=== PATIENT | female | born 1995 ===

== ENCOUNTER → 2018-12-20 | Outpatient (CLI) | payer BC ==
[~2018-12-20] MED LIST: ALB6.7R INH; PREN-127 PO
[2018-12-20 10:59] LABS: PLATELET COUNT, AUTOMATED 370 K/uL (150-450)
== END ==
LOC: LAB 09:57
PROVIDERS: ATTEND Obstetrics & Gynecology
DX: Z34.91 Encounter for supervision of normal pregnancy, unspecified, first trimester (principal); B96.89 Other specified bacterial agents as the cause of diseases classified elsewhere
CPT/HCPCS: 36415; 81001; 85025; 86592; 86703; 86762; 86850; 86900; 86901; 87088; 87340

== ENCOUNTER 2018-12-21 17:41 | Emergency (ER) | payer BC ==
--- NOTE | 2018-12-21 18:08 | ER Report ---
History and Physical Time Seen By MD: 18:07 Hx. of Stated Complaint: PATIENT IS 7 WEEKS AND HAVING BLEEDING AND CRAMPING TODAY. FIRST HPI/ROS CHIEF COMPLAINT: Vaginal bleeding and cramping HISTORY OF PRESENT ILLNESS:Patient is , she is currently 7 weeks 0 days by last menstrual period; initial lab screen shows blood type is O+ antibody negative, per the electronic medial record; patient states that she had her initial OB appointment yesterday at weeks 6 days based on a first aid last menstrual period of 11/02/2018. This was an unplanned but father is involved. Patient states she had some cramping yesterday but had a routine exam. Today she began having some spotting bleeding and increased cramping that began around 3 PM. She's had 2 episodes where she had to go the bathroom and noticed blood when she wiped she states less than a regular period. She denies any dysuria. She denies any vaginal discharge. She denies any other symptoms at this time. REVIEW OF SYSTEMS: Constitutional: No fever, no chills. Eyes: No discharge. ENT: No sore throat. Cardiovascular: No chest pain, no palpitations. Respiratory: No cough, no shortness of breath. Gastrointestinal: Pelvic cramping, no nausea or vomiting, vaginal bleeding Genitourinary: No hematuria. Musculoskeletal: No back pain. Skin: No rashes. Neurological: No headache. Allergies: Coded Allergies: No Known Drug Allergies (Unverified , 12/20/18) Home Meds Reported Medications Albuterol Sulfate (PROVENTIL HFA) 6.7 Gm Inh, 1-2 PUFF INH PRN, INH 12/20/18 Vits W-Ca,Fe,Fa(<1MG) ( VITAMINS) 1 Each Tablet, 1 EACH PO DAILY, TAB 12/20/18 Past Medical/Surgical History Asthma Smoking Status: Never Smoker Exposure to Second Hand Smoke?: No Hx Substance Use Disorder: No Constitutional Vital Sign - Last 24 Hours 12/21/18 12/21/18 12/21/18 12/21/18 17:49 17:56 18:00 18:11 Temp 98.2 Pulse 88 75 Resp 16 B/P (MAP) 129/74 (92) 129/74 101/62 (75) Pulse Ox 92 98 O2 Delivery Room Air 4/23/12/21/18 12/21/18 12/21/18 18:41 19:00 19:11 19:30 Pulse 72 78 B/P (MAP) 121/69 (86) 121/75 (90) Pulse Ox 97 97 12/21/18 12/21/18 12/21/18 12/21/18 19:45 20:00 20:15 20:28 Pulse 71 71 79 B/P (MAP) 117/72 (87) 119/75 (90) Pulse Ox 97 93 96 Physical Exam General/Constitutional: Patient is awake, alert, nontoxic and in no acute respiratory distress. Head: Normocephalic and atraumatic. Eyes: Conjunctival clear, Sclera are clear and anicteric. Ears:External canals are clear. Tympanic membranes are clear with normal landmarks and light reflex. Nares: No rhinorrhea or bleeding. Turbinates are pink and moist. Oropharyngeal: Mucous membranes are moist. There is no pharyngeal erythema or exudate. There are no palatal petechiae. Uvula is midline and symmetrical. Neck: Supple, no adenopathy. Cardiovascular: Heart is regular rate and rhythm without audible murmurs, rubs or gallops. Pulmonary: Lungs are clear to auscultation bilaterally. There are no wheezes, rales, or rhonchi. Chest rise is symmetrical Abdomen: Soft, nontender, no guarding or peritoneal signs. Extremities: No gross deformities, No peripheral cyanosis. Able to move all 4 extremities. Neuro: Alert and oriented X3, Skin: No rashes, skin is warm dry and well perfused. Medical Decision Making Data Points Result Diagram: 12/21/18182612/21/181826 Laboratory Hematology Test 12/21/18 18:27 Red Blood Count 4.60 M/uL (4.17-5.56) Mean Corpuscular Volume 91.4 fL (80.0-96.0) Mean Corpuscular Hemoglobin 31.6 pg (26.0-33.0) Mean Corpuscular Hemoglobin Concent 34.6 g/dL (32.0-36.0) Red Cell Distribution Width 13.5 % (11.5-14.5) Mean Platelet Volume 7.5 fL (7.2-11.1) Neutrophils (%) (Auto) 76.9 % (39.4-72.5) Lymphocytes (%) (Auto) 11.9 % (17.6-49.6) Monocytes (%) (Auto) 5.1 % (4.1-12.4) Eosinophils (%) (Auto) 5.2 % (0.4-6.7) Basophils (%) (Auto) 0.9 % (0.3-1.4) Nucleated RBC Relative Count (auto) 0.1 /100WBC Neutrophils # (Auto) 8.4 K/uL (2.0-7.4) Lymphocytes # (Auto) 1.3 K/uL (1.3-3.6) Monocytes # (Auto) 0.6 K/uL (0.3-1.0) Eosinophils # (Auto) 0.6 K/uL (0.0-0.5) Basophils # (Auto) 0.1 K/uL (0.0-0.1) Nucleated RBC Absolute Count (auto) 0.01 K/uL Peripheral Blood Smear No Y/N Sodium Level 139 mmol/L (137-145) Potassium Level 3.4 mmol/L (3.5-5.0) Chloride Level 106 mmol/L (98-107) Carbon Dioxide Level 22 mmol/L (22-31) Blood Urea Nitrogen 11 mg/dl (7-18) Creatinine 0.50 mg/dl (0.52-1.04) Glomerular Filtration Rate Calc > 60.0 Random Glucose 100 mg/dl (75-110) Calcium Level 9.5 mg/dl (8.4-10.2) Total Bilirubin 0.3 mg/dl (0.2-1.3) Aspartate Amino Transf (AST/SGOT) 19 U/L (0-35) Alanine Aminotransferase (ALT/SGPT) 22 U/L (0-56) Alkaline Phosphatase 42 U/L (0-126) Total Protein 8.0 g/dl (6.3-8.2) Albumin 4.6 g/dl (3.5-5.0) Human Chorionic Gonadotropin, Quant 798 mIU/ml Chemistry Test 12/21/18 18:27 White Blood Count 10.9 k/uL (4.5-11.0) Red Blood Count 4.60 M/uL (4.17-5.56) Hemoglobin 14.5 g/dL (12.0-16.0) Hematocrit 42.0 % (34.0-47.0) Mean Corpuscular Volume 91.4 fL (80.0-96.0) Mean Corpuscular Hemoglobin 31.6 pg (26.0-33.0) Mean Corpuscular Hemoglobin Concent 34.6 g/dL (32.0-36.0) Red Cell Distribution Width 13.5 % (11.5-14.5) Platelet Count 406 K/uL (150-450) Mean Platelet Volume 7.5 fL (7.2-11.1) Neutrophils (%) (Auto) 76.9 % (39.4-72.5) Lymphocytes (%) (Auto) 11.9 % (17.6-49.6) Monocytes (%) (Auto) 5.1 % (4.1-12.4) Eosinophils (%) (Auto) 5.2 % (0.4-6.7) Basophils (%) (Auto) 0.9 % (0.3-1.4) Nucleated RBC Relative Count (auto) 0.1 /100WBC Neutrophils # (Auto) 8.4 K/uL (2.0-7.4) Lymphocytes # (Auto) 1.3 K/uL (1.3-3.6) Monocytes # (Auto) 0.6 K/uL (0.3-1.0) Eosinophils # (Auto) 0.6 K/uL (0.0-0.5) Basophils # (Auto) 0.1 K/uL (0.0-0.1) Nucleated RBC Absolute Count (auto) 0.01 K/uL Peripheral Blood Smear No Y/N Glomerular Filtration Rate Calc > 60.0 Calcium Level 9.5 mg/dl (8.4-10.2) Total Bilirubin 0.3 mg/dl (0.2-1.3) Aspartate Amino Transf (AST/SGOT) 19 U/L (0-35) Alanine Aminotransferase (ALT/SGPT) 22 U/L (0-56) Alkaline Phosphatase 42 U/L (0-126) Total Protein 8.0 g/dl (6.3-8.2) Albumin 4.6 g/dl (3.5-5.0) Human Chorionic Gonadotropin, Quant 798 mIU/ml EKG/Imaging Imaging [place]ACILITY[place] [facility] [place]IENT NAME: Edison Coleman : 1995 MR: [id number] V: [id number] EXAM DATE: ORDERING PHYSICIAN: MARCELINA ALBERTS TECHNOLOGIST: Location: [facility] - [place] Patient: Edison Coleman : 1995 Visit/Account:[id number] Date of Sevice: 12/21/2018 EXAMINATION: Transvaginal first trimester OB ultrasound HISTORY: First trimester . Cramping and bleeding. COMPARISON: None. LMP: 11/02/2018, 7 weeks and 0 days. TOM by LMP: 08/09/2019. FINDINGS: The uterus is anteverted in position with normal size and morphology. The uterus measures 7.3 x 3.2 x 5.4 cm. No focal uterine mass. The endometrium is mildly thickened and heterogeneous, measuring up to 11 mm. There is a small cystic structure along the endometrium which likely represents a gestational sac. Mean sac diameter of this structure measures 0.68 cm, corresponding with a gestational age of 5 weeks and 2 days. Internal echogenic structure may represent an early pole. [place]-rump length of this structure measures 4.1 mm, corresponding with a gestational age of 6 weeks and 1 day. No cardiac activity was visualized with Doppler imaging. The likely gestational sac appeared to change position within the endometrial cavity over the course of the examination. This was initially visualized high along the fundal aspect of the endometrium but subsequently appeared to be positioned more inferiorly along the endometrial canal. Normal size and appearance of both ovaries. The right ovary measures 2.2 x 1.8 x 2.7 cm; the left ovary 3.1 x 1.2 x 2.1 cm. The right ovary contains a corpus luteum. Both ovaries demonstrate normal vascularity with Doppler. No abnormal adnexal mass is visualized. No free fluid in the pelvis. IMPRESSION: 1. Likely intrauterine gestational sac. Mean sac diameter corresponds with a gestational age of 5 weeks and 2 days. The presumed gestational sac has an irregular appearance and appeared to change position within the endometrial cavity over the course of the examination. In the setting of new vaginal bleeding and cramping, findings are suspicious for a nonviable with impending spontaneous . Serial hCGs and follow-up ultrasound could be performed for further evaluation as clinically indicated. 2. Unremarkable adnexa. No free fluid in the pelvis. Findings were discussed with MARCELINA ALBERTS at 12/21/2018 8:03 PM. Report Dictated By: Sea Garnett MD at 12/21/2018 7:57 PM Report E-Signed By: Sea Garnett MD at 12/21/2018 8:08 PM WSN:[id number] ED Course/Re-evaluation ED Course 12/21/2018 6:22:23 pm patient is a 23-year-old female with an estimated distasteful age of 7 weeks 0 days based on a last menstrual period of 0 11/02/2018. This is her 1st which was unplanned but she did have OB initial evaluation yesterday was having some cramping but today began with cramping and bleeding. She denies passing any tissue. At this time will be a threatened workup. This will include blood work blood type along with 1st trimester ultrasound. Decision to Disposition Date: Dec 21, 2018 Decision to Disposition Time: 20:11 Depart Departure Latest Vital Signs Vital Signs Date Time Temp Pulse Resp B/P (MAP) Pulse Ox O2 Delivery O2 Flow Rate FiO2 12/21/18 20:28 119/75 (90) 12/21/18 20:15 79 96 12/21/18 17:56 98.2 16 Room Air Impression: Primary Impression: Threatened in first trimester Condition: Condition Unchanged Disposition: HOME OR SELF-CARE Patient Instructions: Threatened Miscarriage (DC) Additional Instructions: BhCG quant was 798 Return to outpatient lab on 12/23/18 after 12 pm for repeat BhCG. The results will go to Dr Gregory Mckeon Return to the emergency department for worsening pelvic cramping or pain or vaginal bleeding worse than a regular period for vaginal bleeding greater than 3 pads in one hour. MARCELINA ALBERTS MD Dec 21, 2018 18:08
[2018-12-21 18:44] LABS: PLATELET COUNT, AUTOMATED 406 K/uL (150-450)
--- NOTE | 2018-12-21 20:12 | RADIOLOGY IMAGING REPORT ---
FACILITY: [facility] PATIENT NAME: Edison Coleman : 1995 MR: [id number] V: [id number] EXAM DATE: ORDERING PHYSICIAN: MARCELINA ALBERTS TECHNOLOGIST: Location: [facility] Patient: Edison Coleman : 1995 Visit/Account:[id number] Date of Sevice: 12/21/2018 EXAMINATION: Transvaginal first trimester OB ultrasound HISTORY: First trimester . Cramping and bleeding. COMPARISON: None. LMP: 11/02/2018, 7 weeks and 0 days. TOM by LMP: 08/09/2019. FINDINGS: The uterus is anteverted in position with normal size and morphology. The uterus measures 7.3 x 3.2 x 5.4 cm. No focal uterine mass. The endometrium is mildly thickened and heterogeneous, measuring up to 11 mm. There is a small cystic structure along the endometrium which likely represents a gestational sac. Me an sac diameter of this structure measures 0.68 cm, corresponding with a gestational age of 5 weeks a nd 2 days. Internal echogenic structure may represent an early pole. [place]-rump length of this structure measures 4.1 mm, corresponding with a gestational age of 6 weeks and 1 day. No cardia c activity was visualized with Doppler imaging. The likely gestational sac appeared to change positio n within the endometrial cavity over the course of the examination. This was initially visualized hig h along the fundal aspect of the endometrium but subsequently appeared to be positioned more inferior ly along the endometrial canal. Normal size and appearance of both ovaries. The right ovary measures 2.2 x 1.8 x 2.7 cm; the left ova ry 3.1 x 1.2 x 2.1 cm. The right ovary contains a corpus luteum. Both ovaries demonstrate normal vasc ularity with Doppler. No abnormal adnexal mass is visualized. No free fluid in the pelvis. IMPRESSION: 1. Likely intrauterine gestational sac. Mean sac diameter corresponds with a gestational age of 5 wee ks and 2 days. The presumed gestational sac has an irregular appearance and appeared to change positi on within the endometrial cavity over the course of the examination. In the setting of new vaginal bl eeding and cramping, findings are suspicious for a nonviable with impending spontaneous abo rtion. Serial hCGs and follow-up ultrasound could be performed for further evaluation as clinically i ndicated. 2. Unremarkable adnexa. No free fluid in the pelvis. Findings were discussed with MARCELINA ALBERTS at 12/21/2018 8:03 PM. Report Dictated By: Sea Garnett MD at 12/21/2018 7:57 PM Report E-Signed By: Sea Garnett MD at 12/21/2018 8:08 PM WSN:[id number]
[2018-12-21 20:28] VITALS: BP 119/75
== END 2018-12-21 20:25 | disposition home or self-care (01) ==
LOC: ER 18:20
DX: O20.0 Threatened abortion (principal); Z3A.01 Less than 8 weeks gestation of pregnancy
CPT/HCPCS: 76817; 82040; 82247; 82310; 82374; 82435; 82565; 82947; 84075; 84132; 84155; 84295; 84450; 84460; 84520; 84702; 85025; 86850; 86900; 86901; 99284

== ENCOUNTER → 2018-12-23 | Outpatient (CLI) | payer BC | LOC: LAB 13:59 | PROVIDERS: ATTEND Student in an Organized Health Care Education/Training Program | DX: O20.0 Threatened abortion (principal) | CPT/HCPCS: 36415; 84702 ==